=== PATIENT | male | born 1995 ===

== ENCOUNTER → 2016-06-02 | Outpatient (CLI) | payer OTHER ==
[~2016-06-02] MED LIST: IBUP-1450 PO
== END | disposition home or self-care (01) ==
LOC: C.RDSM 11:44
PROVIDERS: ATTEND Family Medicine Sports Medicine
DX: M25.511 Pain in right shoulder (principal)

== ENCOUNTER 2016-08-01 15:45 | Emergency (ER) | payer OTHER ==
[~2016-08-01] VITALS: Ht 185.4 cm; Wt 91.0 kg
[2016-08-01 15:51] VITALS: TEMP 36.8; Ht 185.4 cm; Wt 91.0 kg
--- NOTE | 2016-08-01 16:30 | DIAGNOSTIC IMAGING REPORT ---
RIGHT ANKLE MIN 3 VIEWS ROUTINE CLINICAL HISTORY: Right ankle pain status post trauma COMPARISON: None. DISCUSSION: No fractures or dislocations are visualized. The ankle mortise appears intact. There is lateral soft tissue swelling. IMPRESSION: Lateral soft tissue swelling. No fractures identified. Electronically signed by: Guillermo Whittaker M.D. 08/01/2016 4:28 PM Dictated Date/Time: 08/01/2016 4:27 PM
--- NOTE | 2016-08-01 16:43 | EMERGENCY ROOM VISIT NOTE ---
ED Visit Note First contact with patient: 15:54 CHIEF COMPLAINT: Right Ankle injury HISTORY OF PRESENT ILLNESS: This 20-year-old male patient sustained an injury to the right ankle with a twisting, inversion motion last evening around 6 PM. Complains of swelling and pain. The patient states initially he was able to walk on the ankle but this morning when he woke up it is too painful to bear weight. The patient denies any prior injury to his right ankle. The patient states he applied ice for an hour last evening. He has not taken anything for pain. REVIEW OF SYSTEMS: 6 system review was performed and was negative unless stated otherwise in history of present illness. PMH: No prior significant ankle injury. The patient is generally healthy with no chronic medical problems or a history of major surgery. SOCIAL HISTORY: Patient is a [employer] student. The patient denies any tobacco use but admits to occasional alcohol use. PHYSICAL EXAM: Vital Signs: Were reviewed Reviewed Nurse's notes. GEN.: 20-year -old male appears in no acute distress. MENTAL STATUS: Alert, oriented, and cooperative. RIGHT ANKLE: The ankle is swollen and tender over the lateral aspect but the skin is intact and there is no ligamentous instability. There is no deformity. The foot and toes are warm and well-perfused. Sensation to pain and light touch is intact. EMERGENCY DEPARTMENT COURSE: The patient was evaluated. The patient was offered pain medication but declined. X-ray of the right ankle was ordered and interpreted by the radiologist and myself. DIAGNOSTICS:RIGHT ANKLE MIN 3 VIEWS ROUTINE CLINICAL HISTORY: Right ankle pain status post trauma COMPARISON: None. DISCUSSION: No fractures or dislocations are visualized. The ankle mortise appears intact. There is lateral soft tissue swelling. IMPRESSION: Lateral soft tissue swelling. No fractures identified. Electronically signed by: Guillermo Whittaker M.D. 08/01/2016 4:28 PM Dictated Date/Time: 08/01/2016 4:27 PM The patient was informed of the findings. The patient was placed in a gel splint and given crutches. The patient was discharged home in stable condition. DIAGNOSIS: Sprained right ankle DISCHARGE INSTRUCTIONS: Ice and elevation over the next 24 hours. Ibuprofen, 600 mg every 6 hours if needed for pain. Use crutches and wear gel splint until weightbearing is tolerable. If there is no improvement in 3-5 days followup with [facility] Current/Historical Medications No Active Prescriptions or Reported Meds Allergies Coded Allergies: No Known Allergies (Unverified , 08/01/16) Vital Signs Date Time Temp Pulse Resp B/P Pulse Ox O2 Delivery O2 Flow Rate FiO2 08/01/16 15:51 36.8 131 18 151/76 95 Room Air Departure Information Prescriptions No Active Prescriptions or Reported Meds Referrals No Doctor, Assigned (PCP) Patient Instructions Former[facility]
[2016-08-01 16:56] VITALS: BP 144/67; PULSE 70; O2SAT 99
== END 2016-08-01 16:57 | disposition home or self-care (01) ==
LOC: C.EDB 15:46 → C.EDD 16:57
DX: S93.401A Sprain of unspecified ligament of right ankle, initial encounter (principal); X50.1XXA Overexertion from prolonged static or awkward postures, initial encounter

== ENCOUNTER 2016-08-19 17:55 | Emergency (ER) | payer OTHER ==
[~2016-08-19] VITALS: Ht 185.4 cm; Wt 89.5 kg
[2016-08-19 17:59] VITALS: TEMP 37.2; Ht 185.4 cm; Wt 89.5 kg
[2016-08-19] MEDS ORDERED: SODIUM CHLORIDE 0.9% 1000ML 1,000 ML IV STA (19:21)
[2016-08-19] MEDS ORDERED: KETOROLAC TROMETHAMINE 30 MG/ML VIAL IV STA (19:21)
[2016-08-19] MEDS ORDERED: IBUP-1450 PO (19:37)
--- NOTE | 2016-08-19 21:04 | EMERGENCY ROOM VISIT NOTE ---
History First contact with patient: 18:57 Chief Complaint: FLU LIKE SX Stated Complaint: STIFF NECK, BODYACHE,COUGHING,HEADACHE,DIZZINESS, History of Present Illness The patient is a 21 year old male who presents to the Emergency Room with complaints of sore throat, congestion, cough, headache and body aches, and chills that started last night. Cough is nonproductive. He states some pain in the back of his neck. He has taken ibuprofen this morning with some relief of symptoms. He has positive sick contacts with similar symptoms recently. He denies chest pain, shortness of breath, abdominal pain, nausea/vomiting, diarrhea, urinary symptoms, rash. Review of Systems GENERAL: + Fevers, chills, malaise, body aches. HEENT: + Sore throat, nasal congestion. Denies dizziness, visual problems, hearing loss, tinnitus. Denies difficulty swallowing or oral lesions. PULMONARY: + Cough. Denies shortness of breath, sputum production or hemoptysis. CARDIOVASCULAR: Denies chest pain, palpitations, dyspnea on exertion, orthopnea or peripheral edema. GASTROINTESTINAL: Denies diarrhea, constipation, nausea, vomiting, or abdominal pain. GENITOURINARY: Denies dysuria, frequency, urgency or nocturia. NEUROLOGIC: Denies history of epilepsy, CVA, TIA or chronic headaches. MUSCULOSKELETAL: Denies history of joint tenderness/swelling. SKIN: Denies rashes or lesions. PSYCHIATRIC: Denies history of depression or mental illness. ENDOCRINE: Denies history of diabetes, thyroid disorders, abnormal hair growth or sexual dysfunction. Social History Smoking Status: Never Smoker Alcohol Use: occasionally Drug Use: marijuana Occupation Status: student, [employer] student Current/Historical Medications Scheduled PRN Ibuprofen (Motrin), 600 MG PO TID PRN for Pain Allergies Coded Allergies: No Known Allergies (Unverified , 08/01/16) Physical Exam Vital Signs Date Time Temp Pulse Resp B/P Pulse Ox O2 Delivery O2 Flow Rate FiO2 08/19/16 21:51 94 18 136/71 100 Room Air 08/19/16 17:59 37.2 106 18 129/75 99 Room Air Physical Exam CONSTITUTIONAL: No acute distress. Mildly dehydrated mucous membranes. Alert and oriented X 4 with normal affect. HEENT: Normocephalic, atraumatic. Pupils equal, round and reactive to light, EOMI. TMs normal. Posterior pharynx erythematous with some edema, no exudate, no trismus, no uvular deviation. NECK: Supple, full active range of motion without discomfort. Right sided posterior cervical adenopathy, tender to palpation, mobile and soft. RESPIRATORY: Clear to auscultation bilaterally with no wheezing, crackles, rhonchi or stridor. Equal expansion bilaterally. CARDIOVASCULAR: Regular rate and rhythm with no murmurs, rubs or gallops. Normal peripheral perfusion. No edema. GASTROINTESTINAL: Soft, nontender, nondistended. Bowel sounds present in all quadrants. MUSCULOSKELETAL: Full range of motion of all joints without discomfort. INTEGUMENTARY: No rash or other significant dermatologic conditions noted. NEUROLOGIC: Cranial nerves II-XII grossly intact. No focal neurologic deficits noted. Medical Decision & Procedures Laboratory Results Test 08/19/16 19:44 Monoscreen NEG (NEG) Medications Administered Medications (Trade) Dose Ordered Sig/[place] Route Start Time Stop Time Status Last Admin Dose Admin Sodium Chloride (Nss 1000ml) 1,000 ml @ 999 mls/hr Q1H1M STAT IV 08/19/16 19:21 08/19/16 20:21 DC 08/19/16 19:44 999 MLS/HR Ketorolac Tromethamine (Toradol Inj) 15 mg NOW STAT IV 08/19/16 19:21 08/19/16 19:24 DC 08/19/16 19:43 15 MG Medical Decision Patient with flu-like symptoms, slightly dehydrated, but nontoxic appearing. Low -grade temp noted of 100.4 during exam. Rapid strep and Monospot are negative. Patient improved and feeling much better after IV Toradol and IV fluid bolus. He was updated on results and plan for discharge home, encouraged to follow up with his PCP/student health, and given return precautions. He verbalized understanding and is comfortable with plan for discharge. Patient discussed with the attending physician, who agrees with my assessment and disposition. Impression Primary Impression: Influenza-like symptoms Additional Impression: Pharyngitis Departure Information Dispostion Home / Self-Care Condition GOOD Referrals No Doctor, Assigned (PCP) Patient Instructions ED URI Viral, My [facility] Additional Instructions Follow-up with your PCP or student health in the next 1-2 days. Drink plenty of fluids to stay well hydrated, get plenty of rest. Tylenol or ibuprofen as needed for fevers/chills, body aches, sore throat. You can gargle with saltwater and use [id number] lozenges or Chloraseptic spray to help with your sore throat. He is return to the emergency department for worsening symptoms, including severe headache, difficulty breathing, worsening throat pain, difficulty swallowing or drooling, swelling on one side of her neck or face, muffled voice , persistent high fevers, or any other concerns. School Instructions Return To School: 1 day Additional School Instructions: Please excuse from classes today, 08/19/2016. You may return to classes and regularly scheduled activities tomorrow, 08/20/2016. Problem Qualifiers Additional Impression: Pharyngitis Pharyngitis/tonsillitis etiology: unspecified etiology Qualified Codes: J02.9 - Acute pharyngitis, unspecified
[2016-08-19 21:51] VITALS: BP 136/71; PULSE 94; O2SAT 100
== END 2016-08-19 22:20 | disposition home or self-care (01) ==
LOC: C.EDB 17:56 → C.EDC 22:20
DX: J11.1 Influenza due to unidentified influenza virus with other respiratory manifestations (principal)